=== PATIENT | male | born 1965 | race Hispanic/Latino ===

== ENCOUNTER 2017-12-26 11:57 | Inpatient (IN) | payer MEDICARE ==
[~2017-12-26] VITALS: Ht 170.2 cm; Wt 86.7 kg
[2017-12-26] MEDS ORDERED: LIDOCAINE HCL 2% VISCOUS 15 ML UDCUP ONE (12:36)
[2017-12-26] MEDS ORDERED: MAG HYDROX/AL HYDROX/SIMETH ES 30 ML SUSP UDCUP ONE (12:36)
[2017-12-26] MEDS ORDERED: SODIUM CHLORIDE 0.9% 1000ML 1,000 ML IV ONE (12:37)
[2017-12-26] MEDS ORDERED: ONDANSETRON HCL MDV 20ML 2 MG/ML VIAL ONE (12:37)
[2017-12-26] MEDS ORDERED: DICYCLOMINE HCL 10 MG/ML 2ML AMP IM ONE (12:38)
[2017-12-26 12:41] LABS: BASOPHILS % (AUTO) 0.6 % (0.0-5.0); EOSINOPHILS % (AUTO) 0.2 % (0.0-8.0); HEMATOCRIT 32.9 % (42-54); LYMPHOCYTES % (AUTO) 7.8 % (21.0-51.0); MEAN CORPUSCULAR HEMOGLOBIN 30.4 pg (27.0-33.0); MEAN CORPUSCULAR HGB CONC 34.9 g/dL (32.0-36.0); MEAN CORPUSCULAR VOLUME 87.2 fL (79-99); NEUTROPHILS % (AUTO) 82.4 % (40.0-77.0); PLATELET COUNT (AUTO) 302 K/uL (130-400); RED BLOOD CELL COUNT(AUTO) 3.78 MIL/uL (4.50-6.20); RED CELL DISTRIBUTION WIDTH 15.5 % (11.0-15.5)
[2017-12-26] MEDS ORDERED: METOCLOPRAMIDE 10 MG TABLET ONE (12:49)
[2017-12-26 13:03] LABS: ALBUMIN 2.4 g/dL (3.5-5.0); BILIRUBIN,DIRECT 0.7 mg/dL (0.0-0.3); BILIRUBIN,TOTAL 0.9 mg/dL (0.2-1.0); CREATININE 7.4 mg/dL (0.5-1.5); POTASSIUM 3.7 mmol/L (3.5-5.1); TOTAL PROTEIN, SERUM 8.3 g/dL (6.0-8.3)
[2017-12-26 20:00] VITALS: BP 140/81
[2017-12-26] MEDS ORDERED: PANT40TA25 PO (20:01)
[2017-12-26] MEDS ORDERED: ATEN50TA PO (20:01)
[2017-12-26] MEDS ORDERED: AMLO10TA2 PO (20:01)
[2017-12-26] MEDS ORDERED: VALS160T28 PO (20:01)
[2017-12-26] MEDS ORDERED: OXYC10TA48 PO (20:01)
[2017-12-26] MEDS ORDERED: IBUP-2077 PO (20:01)
[2017-12-26 21:20] LABS: CREATININE 6.4 mg/dL (0.5-1.5); POTASSIUM 3.4 mmol/L (3.5-5.1)
[2017-12-26] MEDS: SODIUM BICARBONATE 650 MG TAB PO SCH (21:20)
[2017-12-27] VITALS: BP 145/78
[2017-12-27] MEDS ORDERED: ACETAMINOPHEN 325 MG TAB PO PRN (01:15)
[2017-12-27] MEDS ORDERED: HYDRALAZINE HCL 20 MG/ML VIAL IV PRN (01:15)
[2017-12-27] MEDS ORDERED: LACTULOSE 20 GM/30 ML UDCUP PO PRN (01:15)
[2017-12-27] MEDS ORDERED: ONDANSETRON HCL 4 MG/2 ML VIAL IVP PRN (01:15)
[2017-12-27] MEDS ORDERED: MORPHINE SULFATE 2 MG/ML 1ML SYG IVP PRN ×2 (02:45)
[2017-12-27] MEDS ORDERED: CEFTRIAXONE 1GM/D5W 50ML 50 ML IV SCH (02:45)
[2017-12-27] MEDS: CEFTRIAXONE SODIUM 1 GM IVP SCH (03:43)
[2017-12-27 04:00] VITALS: BP 128/73
[2017-12-27 05:23] LABS: HEMATOCRIT 28.7 % (42-54); MEAN CORPUSCULAR HEMOGLOBIN 30.9 pg (27.0-33.0); MEAN CORPUSCULAR HGB CONC 35.4 g/dL (32.0-36.0); MEAN CORPUSCULAR VOLUME 87.2 fL (79-99); PLATELET COUNT (AUTO) 312 K/uL (130-400); RED CELL DISTRIBUTION WIDTH 15.2 % (11.0-15.5); WHITE BLOOD COUNT (AUTO) 13.5 K/uL (4.8-10.8)
[2017-12-27 05:46] LABS: HEMOGLOBIN A1C 6.8 % (4.0-6.0)
[2017-12-27 05:56] LABS: BILIRUBIN,DIRECT 0.4 mg/dL (0.0-0.3); BILIRUBIN,TOTAL 0.7 mg/dL (0.2-1.0); CREATININE 5.9 mg/dL (0.5-1.5); MAGNESIUM 2.6 mg/dL (1.80-2.40); PHOSPHORUS 4.9 mg/dL (2.5-4.9); POTASSIUM 3.1 mmol/L (3.5-5.1); THYROID STIMULATING HORMONE 0.61 uIU/mL (0.36-3.74); TOTAL PROTEIN, SERUM 7.2 g/dL (6.0-8.3); URIC ACID 14.9 mg/dL (2.6-7.2)
[2017-12-27 06:06] LABS: INR 1.17 (0.85-1.15); PARTIAL THROMBOPLASTIN TIME 33.2 SEC (26.3-35.5); PROTHROMBIN TIME 12.2 SEC (9.6-11.6)
[2017-12-27] MEDS ORDERED: METOCLOPRAMIDE 10 MG/2 ML VIAL IVP SCH ×2 (07:30→12:15)
[2017-12-27 08:00] VITALS: BP 131/67
[2017-12-27 08:12] LABS: APPEARANCE,URINE Cloudy (CLEAR); BILIRUBIN,URINE Negative (NEGATIVE); COLOR,URINE Yellow (YELLOW); GLUCOSE, URINE (UA) Negative (NEGATIVE); KETONES,URINE Negative (NEGATIVE); LEUKOCYTE ESTERASE ,URINE Large (NEGATIVE); NITRATE,URINE Negative (NEGATIVE); OCCULT BLOOD,URINE Large (NEGATIVE); PROTEIN,URINE Trace (NEGATIVE)
[2017-12-27 08:25] LABS: BACTERIA,URINE Few /HPF (None Seen); RBC,URINE 26-50 /HPF (0-1); WBC,URINE 26-50 /HPF (0-1)
[2017-12-27 08:26] LABS: SQUAMOUS EPITHELIAL CELL,UR None Seen /HPF (0-2)
[2017-12-27 09:47] LABS: % IRON SATURATION 23.6 % (30-44)
[2017-12-27] MEDS: FOLIC ACID/VITAMIN B COMP W-C 1 MG CAPSULE PO SCH (09:49)
[2017-12-27] MEDS: FAMOTIDINE 20MG TAB 20 MG TAB PO SCH (09:49)
[2017-12-27] MEDS: SODIUM BICARBONATE 650 MG TAB PO SCH ×2 (09:49→21:50)
[2017-12-27] MEDS ORDERED: OXYCODONE HCL 5 MG TAB PO PRN (11:15)
[2017-12-27 11:30] VITALS: BP 134/81
[2017-12-27] MEDS ORDERED: METOCLOPRAMIDE 10MG/10ML UDCUP PO SCH (12:23)
[2017-12-27 13:28] LABS: CREATININE 5.1 mg/dL (0.5-1.5)
[2017-12-27 13:30] LABS: POTASSIUM 2.8 mmol/L (3.5-5.1)
[2017-12-27 16:47] VITALS: BP 130/73
[2017-12-27] MEDS: METOCLOPRAMIDE 10MG/10ML UDCUP PO SCH (17:09)
[2017-12-27 19:46] VITALS: BP 126/65
[2017-12-27 21:30] LABS: CREATININE 4.5 mg/dL (0.5-1.5)
[2017-12-27 21:32] LABS: POTASSIUM 2.8 mmol/L (3.5-5.1)
[2017-12-27] MEDS ORDERED: POTASSIUM CHLORIDE 20 MEQ ERTAB PO SCH (23:15)
[2017-12-28 00:11] VITALS: BP 123/77
[2017-12-28] MEDS: CEFTRIAXONE SODIUM 1 GM IVP SCH (02:33)
[2017-12-28 04:48] VITALS: BP 112/66
[2017-12-28 05:10] LABS: HEMATOCRIT 30.1 % (42-54); MEAN CORPUSCULAR HEMOGLOBIN 30.2 pg (27.0-33.0); MEAN CORPUSCULAR HGB CONC 34.8 g/dL (32.0-36.0); MEAN CORPUSCULAR VOLUME 86.6 fL (79-99); PLATELET COUNT (AUTO) 341 K/uL (130-400); RED BLOOD CELL COUNT(AUTO) 3.47 MIL/uL (4.50-6.20); RED CELL DISTRIBUTION WIDTH 14.6 % (11.0-15.5); WHITE BLOOD COUNT (AUTO) 11.5 K/uL (4.8-10.8)
[2017-12-28 05:22] LABS: HEPATITIS A ANTIBODY IGM Negative (Negative); HEPATITIS B CORE IGM Negative (Negative); HEPATITIS Bs ANTIGEN SCREEN P Negative (Negative)
[2017-12-28] MEDS: METOCLOPRAMIDE 10MG/10ML UDCUP PO SCH (06:52)
[2017-12-28 08:22] VITALS: BP 118/76
[2017-12-28] MEDS: FOLIC ACID/VITAMIN B COMP W-C 1 MG CAPSULE PO SCH (10:02)
[2017-12-28] MEDS: FAMOTIDINE 20MG TAB 20 MG TAB PO SCH (10:02)
[2017-12-28] MEDS: SODIUM BICARBONATE 650 MG TAB PO SCH ×2 (10:02→21:01)
[2017-12-28] MEDS: AMLODIPINE BESYLATE 5 MG TAB PO SCH (10:02)
[2017-12-28] MEDS: ATENOLOL 50 MG TABLET PO SCH (10:03)
[2017-12-28] MEDS ORDERED: METOCLOPRAMIDE 10MG/10ML UDCUP PO PRN (10:15)
[2017-12-28 12:00] VITALS: BP 98/67
[2017-12-28] MEDS ORDERED: POTASSIUM CHLORIDE 20 MEQ ERTAB PO SCH (13:15)
[2017-12-28 16:00] VITALS: BP 127/76
[2017-12-28 19:20] VITALS: BP 132/77
[2017-12-29 00:20] VITALS: BP 116/74
[2017-12-29 04:00] VITALS: BP 119/72
[2017-12-29] MEDS: CEFTRIAXONE SODIUM 1 GM IVP SCH (04:13)
[2017-12-29 06:11] LABS: HEMATOCRIT 31.7 % (42-54); MEAN CORPUSCULAR HEMOGLOBIN 30.9 pg (27.0-33.0); MEAN CORPUSCULAR HGB CONC 35.1 g/dL (32.0-36.0); MEAN CORPUSCULAR VOLUME 87.9 fL (79-99); PLATELET COUNT (AUTO) 414 K/uL (130-400); WHITE BLOOD COUNT (AUTO) 12.9 K/uL (4.8-10.8)
[2017-12-29 06:22] LABS: CREATININE 2.9 mg/dL (0.5-1.5); POTASSIUM 3.3 mmol/L (3.5-5.1)
[2017-12-29 08:08] VITALS: BP 124/76
[2017-12-29] MEDS ORDERED: POTASSIUM CHLORIDE 20 MEQ ERTAB PO SCH (10:00)
[2017-12-29] MEDS: AMLODIPINE BESYLATE 5 MG TAB PO SCH (10:01)
[2017-12-29] MEDS: FOLIC ACID/VITAMIN B COMP W-C 1 MG CAPSULE PO SCH (10:01)
[2017-12-29] MEDS: FAMOTIDINE 20MG TAB 20 MG TAB PO SCH (10:01)
[2017-12-29] MEDS: SODIUM BICARBONATE 650 MG TAB PO SCH ×2 (10:02→20:38)
[2017-12-29] MEDS: ATENOLOL 50 MG TABLET PO SCH (10:02)
[2017-12-29 11:51] VITALS: BP 117/72
[2017-12-29 16:25] VITALS: BP 119/74
[2017-12-29 19:20] VITALS: BP 125/77
[2017-12-30 00:03] VITALS: BP 122/81
[2017-12-30] MEDS: CEFTRIAXONE SODIUM 1 GM IVP SCH (03:47)
[2017-12-30 04:00] VITALS: BP 113/72
[2017-12-30 05:36] LABS: CREATININE 2.4 mg/dL (0.5-1.5); POTASSIUM 3.3 mmol/L (3.5-5.1)
[2017-12-30 07:44] VITALS: BP 121/69
[2017-12-30] MEDS: SODIUM BICARBONATE 650 MG TAB PO SCH ×2 (09:06→21:01)
[2017-12-30] MEDS: FAMOTIDINE 20MG TAB 20 MG TAB PO SCH (09:06)
[2017-12-30] MEDS: FOLIC ACID/VITAMIN B COMP W-C 1 MG CAPSULE PO SCH (09:06)
[2017-12-30] MEDS: AMLODIPINE BESYLATE 5 MG TAB PO SCH (09:06)
[2017-12-30] MEDS: ATENOLOL 50 MG TABLET PO SCH (09:06)
[2017-12-30 11:18] VITALS: BP 123/76
[2017-12-30] MEDS ORDERED: POTASSIUM CHLORIDE 20MEQ/100ML 100 ML IV PRN (14:00)
[2017-12-30] MEDS ORDERED: POTASSIUM CHLORIDE 20 MEQ ERTAB PO PRN (14:00)
[2017-12-30] MEDS ORDERED: PHARMACY COMMUNICATION MISC SCH (14:00)
[2017-12-30] MEDS ORDERED: POTASSIUM CHLORIDE 10% ELIXIR 20 MEQ/15 ML UDCUP PO PRN ×2 (14:00→15:30)
[2017-12-30] MEDS ORDERED: LIDOCAINE HCL-MPF 1% 2ML VIAL IVP PRN (14:00)
[2017-12-30] MEDS ORDERED: POTASSIUM CHLORIDE 10MEQ/100ML 100 ML IV PRN (15:30)
[2017-12-30] MEDS ORDERED: LIDOCAINE HCL-MPF 1% 2ML VIAL IV PRN (15:30)
[2017-12-30 16:00] VITALS: BP 106/70
[2017-12-30] MEDS: POTASSIUM CHLORIDE 10 MEQ/TAB.SR PO PRN ×3 (16:01→21:02)
[2017-12-30 20:00] VITALS: BP 124/72
[2017-12-31] VITALS: BP 125/80
[2017-12-31] MEDS: CEFTRIAXONE SODIUM 1 GM IVP SCH (03:43)
[2017-12-31 04:00] VITALS: BP 125/82
[2017-12-31 05:15] LABS: HEMATOCRIT 34.6 % (42-54); MEAN CORPUSCULAR HEMOGLOBIN 29.9 pg (27.0-33.0); MEAN CORPUSCULAR HGB CONC 34.2 g/dL (32.0-36.0); MEAN CORPUSCULAR VOLUME 87.6 fL (79-99); NUCLEATED RED BLOOD CELLS 0.1 % (0.0-0.19); PLATELET COUNT (AUTO) 479 K/uL (130-400); RED BLOOD CELL COUNT(AUTO) 3.95 MIL/uL (4.50-6.20); RED CELL DISTRIBUTION WIDTH 15.1 % (11.0-15.5); WHITE BLOOD COUNT (AUTO) 14.6 K/uL (4.8-10.8)
[2017-12-31 05:34] LABS: CREATININE 2.2 mg/dL (0.5-1.5); MAGNESIUM 1.4 mg/dL (1.80-2.40); PHOSPHORUS 4.6 mg/dL (2.5-4.9); POTASSIUM 4.3 mmol/L (3.5-5.1)
[2017-12-31 07:50] VITALS: BP 119/76
[2017-12-31] MEDS: ATENOLOL 50 MG TABLET PO SCH (08:46)
[2017-12-31] MEDS: FAMOTIDINE 20MG TAB 20 MG TAB PO SCH (08:46)
[2017-12-31] MEDS: AMLODIPINE BESYLATE 5 MG TAB PO SCH (08:46)
[2017-12-31] MEDS: SODIUM BICARBONATE 650 MG TAB PO SCH (08:46)
[2017-12-31] MEDS: FOLIC ACID/VITAMIN B COMP W-C 1 MG CAPSULE PO SCH (08:46)
[2017-12-31] MEDS ORDERED: METO25TA6 PO (10:11)
[2017-12-31 12:00] VITALS: BP 122/75
[2017-12-31] MEDS ORDERED: ONDANSETRON HCL MDV 20ML 2 MG/ML VIAL IVP PRN (12:32)
[2017-12-31] MEDS ORDERED: MAGNESIUM 2GM PREMIX 50ML 50 ML IV SCH (12:45)
[2017-12-31 16:00] VITALS: BP 116/77
== END 2017-12-31 17:33 | disposition home or self-care (01) | DRG 683 ==
LOC: EDH 11:57 → EDHIP 13:45 → OBSVTOIN 13:45 → 4CH 17:47
PROVIDERS: ADMIT Family Medicine; ATTEND Family Medicine
DX: N17.9 Acute kidney failure, unspecified (principal); E87.1 Hypo-osmolality and hyponatremia; E11.22 Type 2 diabetes mellitus with diabetic chronic kidney disease; E87.2 Acidosis; N39.0 Urinary tract infection, site not specified; E87.8 Other disorders of electrolyte and fluid balance, not elsewhere classified; N18.9 Chronic kidney disease, unspecified; E78.5 Hyperlipidemia, unspecified; I12.9 Hypertensive chronic kidney disease with stage 1 through stage 4 chronic kidney disease, or unspecified chronic kidney disease; R63.4 Abnormal weight loss; E86.0 Dehydration; B96.20 Unspecified Escherichia coli [E. coli] as the cause of diseases classified elsewhere; R79.89 Other specified abnormal findings of blood chemistry; E87.6 Hypokalemia; G89.4 Chronic pain syndrome; R74.0 Nonspecific elevation of levels of transaminase and lactic acid dehydrogenase [LDH]; D64.9 Anemia, unspecified; Z96.642 Presence of left artificial hip joint; N41.9 Inflammatory disease of prostate, unspecified; Z87.891 Personal history of nicotine dependence; Z68.29 Body mass index [BMI] 29.0-29.9, adult; Z90.49 Acquired absence of other specified parts of digestive tract; Z79.2 Long term (current) use of antibiotics; Z28.21 Immunization not carried out because of patient refusal
CPT/HCPCS: 36415; 71045; 76700; 76770; 80048; 80053; 80061; 80074; 80076; 81001; 82728; 83036; 83540; 83550; 83690; 83735; 84100; 84443; 84484; 84550; 85025; 85027; 85610; 85730; 86038; 86160; 86215; 86235; 86255; 87088; 87186; 93005; A4218; J0500; J0696; J2765; J3475; J7030; Q0161

== ENCOUNTER 2021-03-10 07:51 | Emergency (ER) | payer MEDICARE, OTHER ==
[~2021-03-10] VITALS: Ht 170.2 cm; Wt 81.6 kg
[~2021-03-10 07:51] MED LIST: AMLO-258 PO; ATEN50TA PO; METO25TA6 PO; OXYC10TA48 PO; PANT40TA54 PO
[2021-03-10 08:26] VITALS: BP 111/79
[2021-03-10 09:53] LABS: BASOPHILS % (AUTO) 0.6 % (0.0-5.0); EOSINOPHILS % (AUTO) 7.6 % (0.0-8.0); HEMATOCRIT 31.7 % (42-54); LYMPHOCYTES % (AUTO) 13.4 % (21.0-51.0); MEAN CORPUSCULAR HEMOGLOBIN 32.6 pg (27.0-33.0); MEAN CORPUSCULAR HGB CONC 32.8 g/dL (32.0-36.0); MEAN CORPUSCULAR VOLUME 99.4 fL (79-99); MONOCYTES % (AUTO) 12.3 % (3.0-13.0); NEUTROPHILS % (AUTO) 65.6 % (40.0-77.0); PLATELET COUNT (AUTO) 272 K/uL (130-400); RED BLOOD CELL COUNT(AUTO) 3.19 MIL/uL (4.50-6.20); RED CELL DISTRIBUTION WIDTH 17.2 % (11.0-15.5); WHITE BLOOD COUNT (AUTO) 6.6 K/uL (4.8-10.8)
[2021-03-10 10:17] LABS: ALBUMIN 2.3 g/dL (3.5-5.0); CREATININE 1.1 mg/dL (0.5-1.5); PHOSPHORUS 2.6 mg/dL (2.5-4.9); POTASSIUM 4.7 mmol/L (3.5-5.1)
[2021-03-10 10:18] LABS: BILIRUBIN,TOTAL 1.2 mg/dL (0.2-1.0); MAGNESIUM 1.6 mg/dL (1.80-2.40); TOTAL PROTEIN, SERUM 8.9 g/dL (6.0-8.3)
[2021-03-10] MEDS ORDERED: LACTATED RINGERS 1000ML 1,000 ML IV ONE (10:45)
[2021-03-10] MEDS ORDERED: MAGNESIUM OXIDE 400 MG TABLET PO SCH (10:45)
[2021-03-10 11:26] VITALS: BP 125/72
[2021-03-10] MEDS ORDERED: ONDA4TAB10 PO (14:45)
[2021-03-10] MEDS ORDERED: ACETAMINOPHEN 325 MG TAB ONE (15:27)
[2021-03-10 15:28] VITALS: BP 135/62
== END 2021-03-10 15:39 | disposition home or self-care (01) ==
LOC: EDH 07:51
DX: E86.0 Dehydration (principal); R11.2 Nausea with vomiting, unspecified; R19.7 Diarrhea, unspecified; I10 Essential (primary) hypertension; E11.9 Type 2 diabetes mellitus without complications; Z79.899 Other long term (current) drug therapy
CPT/HCPCS: 36415; 80053; 83690; 83735; 84100; 84484; 85025; 86156; 86850; 86870; 86900; 86901; 93005

== ENCOUNTER → 2022-03-22 | Outpatient (CLI) | payer OTHER ==
[~2022-03-22] MED LIST changes: +ONDA4TAB10 PO
== END | disposition home or self-care (01) ==
LOC: SLP 19:52
PROVIDERS: ATTEND Family Medicine
DX: G47.33 Obstructive sleep apnea (adult) (pediatric) (principal)
CPT/HCPCS: 95810

== ENCOUNTER → 2022-03-30 | Outpatient (CLI) | payer OTHER | END | disposition home or self-care (01) | LOC: SLP 19:59 | PROVIDERS: ATTEND Family Medicine | DX: G47.33 Obstructive sleep apnea (adult) (pediatric) (principal) | CPT/HCPCS: 95811 ==

== ENCOUNTER 2022-09-22 22:56 | Emergency (ER) | payer OTHER ==
[~2022-09-22] VITALS: Ht 170.2 cm; Wt 84.4 kg
[~2022-09-22 22:56] MED LIST changes: -AMLO-258 PO; +ATEN100T PO; -ATEN50TA PO; +BACL10TA PO; +FERR-72 PO; +FOLI1TAB85 PO; +HYDR-4060 PO; +IOHEXOL 350 MG/ML 100ML INFUS..BTL IV ONE; -METO25TA6 PO; +OMEP40CA21 PO; -ONDA4TAB10 PO; -OXYC10TA48 PO; -PANT40TA54 PO; +SODI650T PO
[2022-09-22] MEDS ORDERED: MORPHINE 2 MG SYG IM ONE (23:30)
[2022-09-22] MEDS ORDERED: ONDANSETRON 4MG INJ IVP ONE (23:30)
[2022-09-22] MEDS ORDERED: 0.9%NACL 1000ML 1,000 ML IV ONE (23:30)
[2022-09-22 23:31] LABS: BASOPHILS % (AUTO) 0.4 % (0.0-5.0); EOSINOPHILS % (AUTO) 0.2 % (0.0-8.0); HEMATOCRIT 28.1 % (42-54); LYMPHOCYTES % (AUTO) 17.7 % (21.0-51.0); MEAN CORPUSCULAR HEMOGLOBIN 34.4 pg (27.0-33.0); MEAN CORPUSCULAR HGB CONC 34.5 g/dL (32.0-36.0); MEAN CORPUSCULAR VOLUME 99.6 fL (79-99); MONOCYTES % (AUTO) 7.2 % (3.0-13.0); PLATELET COUNT (AUTO) 220 K/uL (130-400); RED BLOOD CELL COUNT(AUTO) 2.82 MIL/uL (4.50-6.20); RED CELL DISTRIBUTION WIDTH 13.2 % (11.0-15.5); WHITE BLOOD COUNT (AUTO) 9.7 K/uL (4.8-10.8)
[2022-09-22 23:39] LABS: CREATININE 1.1 mg/dL (0.5-1.5); POTASSIUM 4.1 mmol/L (3.5-5.1)
[2022-09-22 23:48] LABS: ALBUMIN 2.4 g/dL (3.5-5.0); TOTAL PROTEIN, SERUM 8.2 g/dL (6.0-8.3)
[2022-09-23] MEDS ORDERED: IOHEXOL 350 MG/ML 100ML INFUS..BTL IV ONE (00:37)
[2022-09-23 02:08] VITALS: BP 141/84
[2022-09-23] MEDS ORDERED: IBUP-1493 PO (02:31)
[2022-09-23] MEDS ORDERED: LIDOP TD (02:31)
[2022-09-23] MEDS ORDERED: GABA300C PO (02:31)
== END 2022-09-23 02:55 | disposition home or self-care (01) ==
LOC: EDH 22:56
DX: S22.42XA Multiple fractures of ribs, left side, initial encounter for closed fracture (principal); I12.9 Hypertensive chronic kidney disease with stage 1 through stage 4 chronic kidney disease, or unspecified chronic kidney disease; N18.30 Chronic kidney disease, stage 3 unspecified; Z79.899 Other long term (current) drug therapy; Z88.8 Allergy status to other drugs, medicaments and biological substances; W18.39XA Other fall on same level, initial encounter; Y93.01 Activity, walking, marching and hiking; Y92.89 Other specified places as the place of occurrence of the external cause; Y99.8 Other external cause status
CPT/HCPCS: 99285; 71260; 96374; 96361 ×2; 84484; 80053; 85025; 36415; 74177; 96372; J7030; J2405; Q9967

== ENCOUNTER 2022-09-26 14:32 | Emergency (ER) | payer OTHER ==
[~2022-09-26] VITALS: Ht 170.2 cm; Wt 81.6 kg
[~2022-09-26 14:32] MED LIST changes: +GABA300C PO; +IBUP-1493 PO; -IOHEXOL 350 MG/ML 100ML INFUS..BTL IV ONE; +LIDOP TD
[2022-09-26 15:35] LABS: HEMATOCRIT 31.2 % (42-54); LYMPHOCYTES % (AUTO) 10.9 % (21.0-51.0); MEAN CORPUSCULAR HGB CONC 33.7 g/dL (32.0-36.0); NEUTROPHILS % (AUTO) 87.5 % (40.0-77.0); PLATELET COUNT (AUTO) 243 K/uL (130-400); RED CELL DISTRIBUTION WIDTH 14.9 % (11.0-15.5); WHITE BLOOD COUNT (AUTO) 9.1 K/uL (4.8-10.8)
[2022-09-26 15:44] LABS: CARBON DIOXIDE 17 mmol/L (21-32); CHLORIDE 97 mmol/L (101-111); CREATININE 2.8 mg/dL (0.5-1.5); GLOMERULAR FILTR. RATE CALC 25 mL/min (>60); GLUCOSE,RANDOM 148 mg/dL (70-105); POTASSIUM 3.9 mmol/L (3.5-5.1); SODIUM SERUM 134 mmol/L (136-145); UREA NITROGEN, BLOOD 14 mg/dL (7-18)
[2022-09-26 16:00] LABS: ACETAMINOPHEN 26 mcg/mL (10-29); ALANINE AMINOTRANSFERASE 505 U/L (12-78); ALBUMIN 2.2 g/dL (3.5-5.0); ALCOHOL, BLOOD < 3 mg/dL (0-10); TOTAL PROTEIN, SERUM 7.6 g/dL (6.0-8.3)
[2022-09-26 16:02] LABS: SALICYLATE < 2.8 mg/dL (2.8-20.0)
[2022-09-26 16:04] LABS: ASPARTATE AMINOTRANSFERASE 1990 U/L (10-37); CREATINE KINASE, TOTAL 503 U/L (21-232)
[2022-09-26 16:43] LABS: APPEARANCE,URINE CLOUDY (CLEAR); BILIRUBIN,URINE 1 mg/dL (NEGATIVE); COLOR,URINE DARK-YELLOW (YELLOW); GLUCOSE, URINE (UA) NEGATIVE (NEGATIVE); KETONES,URINE NEGATIVE (NEGATIVE); LEUKOCYTE ESTERASE ,URINE NEGATIVE Leu/uL (NEGATIVE); NITRATE,URINE NEGATIVE (NEGATIVE); OCCULT BLOOD,URINE SMALL (NEGATIVE); PH,URINE 5.5 (5.0-8.0); PROTEIN,URINE 70 mg/dL (NEGATIVE); UROBILINOGEN,URINE 0.2 mg/dL (0.2-1.0)
[2022-09-26 16:51] LABS: AMPHET/METH SCREEN,URINE NEGATIVE (NEGATIVE); BARBITURATE SCREEN, URINE NEGATIVE (NEGATIVE); BENZODIAZEPINES SCREEN,URINE NEGATIVE (NEGATIVE); CANNABINOID SCREEN,URINE NEGATIVE (NEGATIVE); COCAINE SCREEN,URINE NEGATIVE (NEGATIVE); OPIATE SCREEN,URINE POSITIVE (NEGATIVE); PHENCYCLIDINE SCREEN,URINE NEGATIVE (NEGATIVE)
[2022-09-26 16:52] LABS: INR > 7.00 (0.85-1.15)
[2022-09-26 16:55] LABS: BACTERIA,URINE FEW /HPF (None Seen); MUCUS,URINE RARE LPF (None Seen); SQUAMOUS EPITHELIAL CELL,UR RARE /HPF (0-2)
[2022-09-26] MEDS ORDERED: ACETAMINOPHEN 325 MG TAB PO PRN (17:00)
[2022-09-26] MEDS ORDERED: LACTATED RINGERS 1000ML 1,000 ML IV SCH (17:00)
[2022-09-26] MEDS ORDERED: ONDANSETRON 4MG INJ IVP PRN (17:00)
[2022-09-26] MEDS ORDERED: ACETAMINOPHEN 650 MG SUPPOSITORY RC PRN (17:00)
[2022-09-26] MEDS ORDERED: RENAL DOSE IV PRN (17:30)
[2022-09-26] MEDS ORDERED: GLUCAGON 1MG KIT 1 MG ML IM PRN (17:30)
[2022-09-26] MEDS ORDERED: DEXTROSE 50%-WATER 50 ML DISP.SYRIN IV PRN (17:30)
[2022-09-26] MEDS ORDERED: PHARMACY COMMUNICATION MISC SCH ×2 (17:30)
[2022-09-26 17:43] LABS: ABG BASE EXCESS -8.8 mmol/L (-2.0-3.0); ABG HCO3 15.9 mmol/L (21.0-28.0); ABG OXYGEN SATURATION 95.9 % (95.0-99.0); ABG PCO2 31 mmHg (35-48)
[2022-09-26] MEDS ORDERED: ACETYLCYSTEINE IV SCH ×4 (18:00→19:00)
[2022-09-26] MEDS: CEFTRIAXONE 2GM VIAL IVP SCH (18:00)
[2022-09-26] MEDS ORDERED: NACL IV SCH ×4 (18:00→19:00)
[2022-09-26] MEDS ORDERED: LACTULOSE 20 GM/30 ML UDCUP PO PRN (18:00)
[2022-09-26 18:42] LABS: PARTIAL THROMBOPLASTIN TIME 42.4 SEC (26.3-35.5)
[2022-09-26 18:46] LABS: INR > 7.00 (0.85-1.15); PROTHROMBIN TIME 83.6 SEC (9.6-11.6)
[2022-09-26 18:57] LABS: ALBUMIN 1.9 g/dL (3.5-5.0); BILIRUBIN,DIRECT 4.8 mg/dL (0.0-0.3); CREATININE 2.6 mg/dL (0.5-1.5); POTASSIUM 3.7 mmol/L (3.5-5.1)
[2022-09-26 19:20] LABS: FIBRINOGEN 216 mg/dL (180-350)
[2022-09-26 19:45] LABS: D-DIMER 5911 ng/mL (0-500)
[2022-09-26] MEDS ORDERED: ONDANSETRON 4MG INJ ONE (20:23)
[2022-09-26] MEDS ORDERED: FAMOTIDINE 20MG TAB PO SCH (21:00)
[2022-09-27] MEDS ORDERED: DEXTROSE 5% IV ONE ×2
[2022-09-27] MEDS ORDERED: WATER IV ONE ×2
[2022-09-27] MEDS ORDERED: [UNRECOGNIZED DRUG - OTHER] IV SCH ×2 (01:00)
[2022-09-27] MEDS ORDERED: ACETYLCYSTEINE IV SCH ×2 (01:00)
[2022-09-27 01:16] LABS: CREATININE 2.3 mg/dL (0.5-1.5); POTASSIUM 3.4 mmol/L (3.5-5.1)
[2022-09-27 01:22] LABS: PARTIAL THROMBOPLASTIN TIME 42.7 SEC (26.3-35.5)
[2022-09-27 01:25] LABS: PROTHROMBIN TIME 78.9 SEC (9.6-11.6)
[2022-09-27 01:26] LABS: INR > 7.00 (0.85-1.15)
[2022-09-27 01:33] LABS: ALBUMIN 1.9 g/dL (3.5-5.0); TOTAL PROTEIN, SERUM 6.7 g/dL (6.0-8.3)
[2022-09-27] MEDS ORDERED: ACETYLCYSTEINE IV ONE ×4 (02:00)
[2022-09-27] MEDS ORDERED: [UNRECOGNIZED DRUG - OTHER] IV ONE ×2 (02:00)
[2022-09-27] MEDS ORDERED: LORAZEPAM 2 MG/ML 1 ML VIAL ONE (04:04)
[2022-09-27] MEDS ORDERED: LACTULOSE 20 GM/30 ML UDCUP ONE (06:04)
[2022-09-27 08:10] LABS: HEMATOCRIT 28.5 % (42-54); MEAN CORPUSCULAR HGB CONC 33.7 g/dL (32.0-36.0); NUCLEATED RED BLOOD CELLS 0.4 % (0.0-0.19); RED BLOOD CELL COUNT(AUTO) 2.74 MIL/uL (4.50-6.20); RED CELL DISTRIBUTION WIDTH 14.9 % (11.0-15.5)
[2022-09-27 08:36] LABS: ALBUMIN 1.7 g/dL (3.5-5.0); CREATININE 1.9 mg/dL (0.5-1.5); TOTAL PROTEIN, SERUM 6.1 g/dL (6.0-8.3)
[2022-09-27 08:37] LABS: POTASSIUM 2.7 mmol/L (3.5-5.1)
[2022-09-27 08:55] LABS: INR 6.92 (0.85-1.15); PROTHROMBIN TIME 67.6 SEC (9.6-11.6)
[2022-09-27] MEDS ORDERED: POTASSIUM CHLORIDE 20 MEQ/100 ML BAG IV SCH ×2 (09:30→19:30)
[2022-09-27] MEDS ORDERED: MAGNESIUM 2GM PREMIX 50ML 50 ML IV SCH (10:00)
[2022-09-27 10:31] LABS: HEPATITIS A IGM ANTIBODY Non-Reactive (Nonreactive); HEPATITIS B CORE IGM ANTIBODY Non-Reactive (Negative); HEPATITIS B SURFACE ANTIGEN Non-Reactive (Nonreactive); HEPATITIS C ANTIBODY Non-Reactive (Nonreactive)
[2022-09-27 18:38] LABS: HEMATOCRIT 29.4 % (42-54); MEAN CORPUSCULAR HEMOGLOBIN 34.7 pg (27.0-33.0); MEAN CORPUSCULAR HGB CONC 34.7 g/dL (32.0-36.0); NUCLEATED RED BLOOD CELLS 0.4 % (0.0-0.19); RED BLOOD CELL COUNT(AUTO) 2.94 MIL/uL (4.50-6.20); WHITE BLOOD COUNT (AUTO) 6.8 K/uL (4.8-10.8)
[2022-09-27 18:51] LABS: ALBUMIN 1.9 g/dL (3.5-5.0); CREATININE 1.8 mg/dL (0.5-1.5); TOTAL PROTEIN, SERUM 6.9 g/dL (6.0-8.3)
[2022-09-27 18:52] LABS: PHOSPHORUS 2.3 mg/dL (2.5-4.9)
[2022-09-27 18:53] LABS: MAGNESIUM 2.1 mg/dL (1.80-2.40)
[2022-09-27 18:54] LABS: INR 5.25 (0.85-1.15); PROTHROMBIN TIME 52.1 SEC (9.6-11.6)
[2022-09-27] MEDS ORDERED: PHARMACY COMMUNICATION MISC SCH (19:00)
[2022-09-27] MEDS: CEFTRIAXONE 2GM VIAL IVP SCH (19:24)
[2022-09-27] MEDS ORDERED: LACTULOSE 20 GM/30 ML UDCUP PR ONE (19:30)
[2022-09-27 21:45] LABS: ABG BASE EXCESS -9.1 mmol/L (-2.0-3.0); ABG HCO3 14.1 mmol/L (21.0-28.0); ABG OXYGEN SATURATION 96.8 % (95.0-99.0); ABG PCO2 25 mmHg (35-48)
[2022-09-27 22:30] LABS: BASOPHILS % (AUTO) 0.2 % (0.0-5.0); EOSINOPHILS % (AUTO) 0.3 % (0.0-8.0); HEMATOCRIT 30.6 % (42-54); LYMPHOCYTES % (AUTO) 13.2 % (21.0-51.0); MEAN CORPUSCULAR HEMOGLOBIN 34.4 pg (27.0-33.0); MEAN CORPUSCULAR HGB CONC 34.3 g/dL (32.0-36.0); MEAN CORPUSCULAR VOLUME 100.3 fL (79-99); MONOCYTES % (AUTO) 2.8 % (3.0-13.0); NEUTROPHILS % (AUTO) 80.2 % (40.0-77.0); NUCLEATED RED BLOOD CELLS 0.6 % (0.0-0.19); PLATELET COUNT (AUTO) 226 K/uL (130-400); RED BLOOD CELL COUNT(AUTO) 3.05 MIL/uL (4.50-6.20); RED CELL DISTRIBUTION WIDTH 15.1 % (11.0-15.5); WHITE BLOOD COUNT (AUTO) 6.4 K/uL (4.8-10.8)
[2022-09-27 22:40] LABS: CREATININE 1.8 mg/dL (0.5-1.5); POTASSIUM 3.3 mmol/L (3.5-5.1)
[2022-09-27 22:45] LABS: ALBUMIN 2.1 g/dL (3.5-5.0); TOTAL PROTEIN, SERUM 7.3 g/dL (6.0-8.3)
[2022-09-28] MEDS ORDERED: POTASSIUM CHLORIDE 10MEQ/100ML 100 ML IV ONE (00:20)
[2022-09-28] MEDS ORDERED: POTASSIUM CHLORIDE 10MEQ/100ML 10 MEQ/100 ML ML IV SCH (00:30)
[2022-09-28 07:23] VITALS: BP 136/96
== END 2022-09-28 10:12 | disposition short-term general hospital (02) ==
LOC: EDH 14:32 → EDHIP 16:49 → UNDOADMIN 16:49 → EDH 09-28 10:12
DX: R45.851 Suicidal ideations (principal); K72.90 Hepatic failure, unspecified without coma; G89.29 Other chronic pain; M54.9 Dorsalgia, unspecified; F19.10 Other psychoactive substance abuse, uncomplicated; M19.90 Unspecified osteoarthritis, unspecified site; K21.9 Gastro-esophageal reflux disease without esophagitis; I12.9 Hypertensive chronic kidney disease with stage 1 through stage 4 chronic kidney disease, or unspecified chronic kidney disease; N18.30 Chronic kidney disease, stage 3 unspecified; Z20.822 Contact with and (suspected) exposure to COVID-19; Z88.8 Allergy status to other drugs, medicaments and biological substances; Z79.899 Other long term (current) drug therapy; Z90.49 Acquired absence of other specified parts of digestive tract; Z98.890 Other specified postprocedural states
CPT/HCPCS: 80053 ×5; 82140 ×5; 85610 ×5; 99285; 84443; 82550; 80076; 83735 ×2; 84100; 80048; 82803 ×2; 80305; 85025 ×2; 85027 ×2; 85378; 85384; 85730 ×3; 86850; 86900; 86901; 87088; 82948; 80074; 86701; 87390; 81001; 36415 ×2; 87635; 71045 ×2; 74176; 76700; 96365; 96366 ×3; 96375 ×3; 36600; 96368; 96361; 31500; G0481; C9803; J7040; J7120; J2405; J0132 ×3; J7050; J3475; J7030; J0696; J2060; J3480 ×2; J7070

== ENCOUNTER 2022-10-29 19:15 | Observation (INO) | payer OTHER ==
[~2022-10-29] VITALS: Ht 170.2 cm; Wt 84.7 kg
[2022-10-29 20:43] LABS: BASOPHILS % (AUTO) 0.4 % (0.0-5.0); EOSINOPHILS % (AUTO) 1.5 % (0.0-8.0); LYMPHOCYTES % (AUTO) 7.6 % (21.0-51.0); MEAN CORPUSCULAR HEMOGLOBIN 35.1 pg (27.0-33.0); MEAN CORPUSCULAR HGB CONC 33.3 g/dL (32.0-36.0); MEAN CORPUSCULAR VOLUME 105.2 fL (79-99); MONOCYTES % (AUTO) 6.7 % (3.0-13.0); NEUTROPHILS % (AUTO) 81.4 % (40.0-77.0); PLATELET COUNT (AUTO) 186 K/uL (130-400); RED BLOOD CELL COUNT(AUTO) 1.94 MIL/uL (4.50-6.20); RED CELL DISTRIBUTION WIDTH 13.8 % (11.0-15.5)
[2022-10-29 20:45] LABS: HEMATOCRIT 20.4 % (42-54)
[2022-10-29 20:50] LABS: APPEARANCE,URINE CLOUDY (CLEAR); BILIRUBIN,URINE 10 mg/dL (NEGATIVE); COLOR,URINE DARK-YELLOW (YELLOW); GLUCOSE, URINE (UA) NEGATIVE (NEGATIVE); KETONES,URINE NEGATIVE (NEGATIVE); LEUKOCYTE ESTERASE ,URINE NEGATIVE Leu/uL (NEGATIVE); NITRATE,URINE NEGATIVE (NEGATIVE); OCCULT BLOOD,URINE NEGATIVE (NEGATIVE); PH,URINE 5.5 (5.0-8.0); PROTEIN,URINE 30 mg/dL (NEGATIVE)
[2022-10-29 20:57] LABS: CARBON DIOXIDE 18 mmol/L (21-32); CHLORIDE 105 mmol/L (101-111); CREATININE 1.8 mg/dL (0.5-1.5); GLOMERULAR FILTR. RATE CALC 41 mL/min (>60); GLUCOSE,RANDOM 135 mg/dL (70-105); SODIUM SERUM 134 mmol/L (136-145); UREA NITROGEN, BLOOD 23 mg/dL (7-18)
[2022-10-29 20:58] LABS: INR 1.85 (0.85-1.15); PROTHROMBIN TIME 19.5 SEC (9.6-11.6)
[2022-10-29 21:00] LABS: PARTIAL THROMBOPLASTIN TIME 57.9 SEC (26.3-35.5)
[2022-10-29 21:01] LABS: BACTERIA,URINE FEW /HPF (None Seen); MUCUS,URINE RARE LPF (None Seen); RBC,URINE 0-1 /HPF (0-1); SQUAMOUS EPITHELIAL CELL,UR RARE /HPF (0-2)
[2022-10-29 21:02] LABS: ALANINE AMINOTRANSFERASE 28 U/L (12-78); ALBUMIN 1.2 g/dL (3.5-5.0); AMMONIA 26 umol/L (11-32); ASPARTATE AMINOTRANSFERASE 57 U/L (10-37); TOTAL PROTEIN, SERUM 6.8 g/dL (6.0-8.3)
[2022-10-29 21:26] LABS: CREATINE KINASE, TOTAL < 7 U/L (21-232)
[2022-10-29] MEDS ORDERED: IOHEXOL 350 MG/ML 100ML INFUS..BTL IV ONE (21:53)
[2022-10-29] MEDS ORDERED: POTASSIUM CHLORIDE 20MEQ/10ML 10 MEQ in 0.9%NACL 50ML 50 ML IV SCH (22:30)
[2022-10-29] MEDS ORDERED: CEFEPIME HCL 1 GM VIAL IVP STA (22:51)
[2022-10-29] MEDS ORDERED: ONDANSETRON 4MG INJ IVP PRN (23:00)
[2022-10-29] MEDS ORDERED: VANCOMYCIN PROTOCOL PER PHARMACY IV SCH (23:00)
[2022-10-29] MEDS ORDERED: LACTATED RINGERS 1000ML IV SCH (23:00)
[2022-10-29] MEDS ORDERED: HYDRALAZINE 20MG/ML VIAL IV PRN (23:00)
[2022-10-29] MEDS ORDERED: PHARMACY COMMUNICATION MISC SCH (23:30)
[2022-10-29] MEDS ORDERED: VANCOMYCIN 1G/250ML KIT 250 ML IV ONE (23:45)
[2022-10-29 23:53] LABS: ABG BASE EXCESS -9.5 mmol/L (-2.0-3.0); ABG OXYGEN SATURATION 94.9 % (95.0-99.0); ABG PCO2 33 mmHg (35-48)
[2022-10-30] MEDS ORDERED: POTASSIUM CHLORIDE 20MEQ/100ML 100 ML IV ONE (00:10)
[2022-10-30 00:56] LABS: HEMATOCRIT 19.8 % (42-54)
[2022-10-30] MEDS ORDERED: POTASSIUM CHLORIDE 10MEQ/100ML 100 ML IV ONE (01:10)
[2022-10-30] MEDS ORDERED: LIDO1ADH82 TP (02:00)
[2022-10-30] MEDS ORDERED: NEOM1OIN19 TP (02:00)
[2022-10-30] MEDS ORDERED: RIFA550T PO (02:00)
[2022-10-30] MEDS ORDERED: BALS60OI TP (02:00)
[2022-10-30] MEDS ORDERED: LACT10SO9 PO (02:00)
[2022-10-30] MEDS ORDERED: BACL10TA PO (02:00)
[2022-10-30] MEDS ORDERED: ATEN50TA PO (02:00)
[2022-10-30] MEDS ORDERED: SERT-439 PO (02:00)
[2022-10-30 08:20] LABS: HEMATOCRIT 24.5 % (42-54); MEAN CORPUSCULAR HEMOGLOBIN 34.3 pg (27.0-33.0); MEAN CORPUSCULAR HGB CONC 34.7 g/dL (32.0-36.0); MEAN CORPUSCULAR VOLUME 98.8 fL (79-99); RED BLOOD CELL COUNT(AUTO) 2.48 MIL/uL (4.50-6.20); RED CELL DISTRIBUTION WIDTH 15.8 % (11.0-15.5); WHITE BLOOD COUNT (AUTO) 16.6 K/uL (4.8-10.8)
[2022-10-30 08:54] LABS: % IRON SATURATION 134.1 % (30-44)
[2022-10-30 08:57] LABS: CREATININE 1.7 mg/dL (0.5-1.5); MAGNESIUM 1.9 mg/dL (1.80-2.40); PHOSPHORUS 3.7 mg/dL (2.5-4.9); POTASSIUM 3.3 mmol/L (3.5-5.1)
[2022-10-30] MEDS: PANTOPRAZOLE 40 MG/VIAL IVP SCH ×2 (09:10→21:05)
[2022-10-30] MEDS: VANCOMYCIN 500MG+NS 100ML 100 ML IV SCH ×2 (09:11→21:05)
[2022-10-30 14:12] LABS: HEMATOCRIT 24.4 % (42-54)
[2022-10-30] MEDS: CEFEPIME HCL 2 GM VIAL IVP SCH ×2 (15:24→23:11)
[2022-10-30] MEDS ORDERED: SODIUM BICARB 8.4% 50ML SYRINGE IVP SCH (16:30)
[2022-10-30] MEDS ORDERED: THIAMINE HCL 100 MG/ML 2ML VIAL IVP SCH (16:30)
[2022-10-30] MEDS ORDERED: SODIUM BICARBONATE 650 MG TAB PO PRN (16:30)
[2022-10-30] MEDS ORDERED: SODIUM BICARB 50MEQ 50ML VIAL 50 ML ONE (16:40)
[2022-10-30 18:05] LABS: HEMATOCRIT 22.7 % (42-54)
[2022-10-30] MEDS ORDERED: SODIUM CHLORIDE 3% FOR INHALATION 4 ML/AMP VIAL.NEB IH ONE ×2 (18:30→23:21)
[2022-10-30] MEDS: RIFAXIMIN 550 MG TABLET PO SCH (21:05)
[2022-10-30] MEDS: LACTULOSE 20 GM/30 ML UDCUP PO SCH (21:06)
[2022-10-30] MEDS: ALBUMIN (HUMAN) 25% 50 ML IV SCH (23:08)
[2022-10-30] MEDS: BACLOFEN 10 MG TABLET PO SCH (23:11)
[2022-10-31 05:50] VITALS: BP 88/55
[2022-10-31] MEDS: CEFEPIME HCL 2 GM VIAL IVP SCH ×3 (07:06→22:36)
[2022-10-31] MEDS: ALBUMIN (HUMAN) 25% 50 ML IV SCH ×2 (07:51→14:55)
[2022-10-31 08:00] VITALS: BP 90/57
[2022-10-31 08:14] LABS: BASOPHILS % (AUTO) 0.7 % (0.0-5.0); EOSINOPHILS % (AUTO) 1.4 % (0.0-8.0); HEMATOCRIT 24.1 % (42-54); LYMPHOCYTES % (AUTO) 8.3 % (21.0-51.0); MEAN CORPUSCULAR HEMOGLOBIN 33.9 pg (27.0-33.0); MEAN CORPUSCULAR VOLUME 99.6 fL (79-99); MONOCYTES % (AUTO) 6.4 % (3.0-13.0); NEUTROPHILS % (AUTO) 81.3 % (40.0-77.0); PLATELET COUNT (AUTO) 179 K/uL (130-400); RED BLOOD CELL COUNT(AUTO) 2.42 MIL/uL (4.50-6.20); RED CELL DISTRIBUTION WIDTH 16.6 % (11.0-15.5); WHITE BLOOD COUNT (AUTO) 14.6 K/uL (4.8-10.8)
[2022-10-31 08:26] LABS: INR 1.99 (0.85-1.15); PROTHROMBIN TIME 20.9 SEC (9.6-11.6)
[2022-10-31] MEDS ORDERED: COMPOUND IV REFRIGERATED 1 EACH IVSOLN MISC PRN (08:30)
[2022-10-31 08:31] LABS: % IRON SATURATION 145.9 % (30-44)
[2022-10-31 08:43] LABS: ALBUMIN 1.4 g/dL (3.5-5.0); CREATININE 1.7 mg/dL (0.5-1.5); POTASSIUM 3.3 mmol/L (3.5-5.1); TOTAL PROTEIN, SERUM 6.4 g/dL (6.0-8.3)
[2022-10-31] MEDS: PANTOPRAZOLE 40 MG/VIAL IVP SCH ×2 (10:08→20:18)
[2022-10-31] MEDS: FLUCONAZOLE 400 MG/NS 200 ML 200 ML IV SCH (10:08)
[2022-10-31] MEDS: FOLIC ACID 5 MG/ML VIAL IV SCH (10:08)
[2022-10-31] MEDS: SERTRALINE HCL 50 MG TABLET PO SCH (10:08)
[2022-10-31] MEDS: LACTULOSE 20 GM/30 ML UDCUP PO SCH ×2 (10:08→20:18)
[2022-10-31] MEDS: RIFAXIMIN 550 MG TABLET PO SCH ×2 (10:08→20:18)
[2022-10-31] MEDS: VANCOMYCIN 500MG+NS 100ML 100 ML IV SCH ×2 (10:09→20:19)
[2022-10-31 12:00] VITALS: BP 86/35
[2022-10-31] MEDS ORDERED: KCL 20 MEQ ERTAB PO SCH (14:30)
[2022-10-31] MEDS ORDERED: SODIUM BICARB 50MEQ 50ML VIAL IV SCH (14:30)
[2022-10-31] MEDS ORDERED: IRON SUCROSE COMPLEX 300 MG in 0.9% NACL 250ML 250 ML IV SCH (15:00)
[2022-10-31 16:00] VITALS: BP 88/53
[2022-10-31] MEDS ORDERED: COMPOUND IV MISC 1 EACH IVSOLN MISC PRN (16:00)
[2022-10-31 19:00] VITALS: BP 95/56
[2022-10-31] MEDS: BACLOFEN 10 MG TABLET PO SCH (22:35)
[2022-11-01] VITALS: BP 95/59
[2022-11-01 04:00] VITALS: BP 92/51
[2022-11-01 04:48] LABS: ALBUMIN 1.4 g/dL (3.5-5.0); CREATININE 1.8 mg/dL (0.5-1.5)
[2022-11-01] MEDS: CEFEPIME HCL 2 GM VIAL IVP SCH (06:12)
[2022-11-01 07:30] VITALS: BP 114/61
[2022-11-01] MEDS: VANCOMYCIN 500MG+NS 100ML 100 ML IV SCH (10:03)
[2022-11-01] MEDS: LACTULOSE 20 GM/30 ML UDCUP PO SCH (10:03)
[2022-11-01] MEDS: PANTOPRAZOLE 40 MG/VIAL IVP SCH (10:03)
[2022-11-01] MEDS: FLUCONAZOLE 400 MG/NS 200 ML 200 ML IV SCH (10:04)
[2022-11-01] MEDS: RIFAXIMIN 550 MG TABLET PO SCH (10:04)
[2022-11-01] MEDS: FOLIC ACID 5 MG/ML VIAL IV SCH (10:04)
[2022-11-01] MEDS: SERTRALINE HCL 50 MG TABLET PO SCH (10:04)
[2022-11-01 11:00] VITALS: BP 110/59
== END 2022-11-01 12:30 | disposition hospice, home (50) ==
LOC: EDH 19:15 → EDHIP 22:51 → 4DH 10-31 05:51
PROVIDERS: ADMIT Internal Medicine Critical Care Medicine; ATTEND Internal Medicine Critical Care Medicine
DX: D50.9 Iron deficiency anemia, unspecified (principal); Z20.822 Contact with and (suspected) exposure to COVID-19; K74.69 Other cirrhosis of liver; D68.4 Acquired coagulation factor deficiency; D72.829 Elevated white blood cell count, unspecified; E87.20 Acidosis, unspecified; E87.6 Hypokalemia; G93.40 Encephalopathy, unspecified; I12.9 Hypertensive chronic kidney disease with stage 1 through stage 4 chronic kidney disease, or unspecified chronic kidney disease; N18.30 Chronic kidney disease, stage 3 unspecified; D63.8 Anemia in other chronic diseases classified elsewhere; K74.60 Unspecified cirrhosis of liver; K76.7 Hepatorenal syndrome; T39.1X2A Poisoning by 4-Aminophenol derivatives, intentional self-harm, initial encounter; Z91.51 Personal history of suicidal behavior; Z96.642 Presence of left artificial hip joint; Z90.49 Acquired absence of other specified parts of digestive tract; Z79.899 Other long term (current) drug therapy; Z98.890 Other specified postprocedural states
CPT/HCPCS: 82435; 82550; 82947; 84484; 84132; 84295; 80053 ×3; 82803; 82140 ×4; 85025 ×2; 85610 ×2; 85730; 85018 ×4; 86850; 86900; 86922; 86901; 87040 ×2; 87088; 87804 ×2; 83605 ×3; 82270; 81001; 36415 ×4; 87635; 74177; 76700; 99291; 93005; 36600; 84145; 94640 ×2; 96376 ×4; 96365; 96366 ×3; 96375 ×2; 96367 ×2; 96368; 82150; 83540 ×2; 83550 ×2; 83615; 83735; 84100; 80048; 82728; 85027; 85014 ×3; 87071; 87205; 82607; 82746; 71045; 80202; G0378 ×56; C9803; J7120; J3370 ×6; J0692 ×8; J3480 ×2; Q9967; P9016; J3490 ×4; J3411; P9047 ×4; C9113 ×5; J1450 ×2; J1756; J7050